=== PATIENT | male | born 1995 | race Caucasian/White ===

== ENCOUNTER 2019-04-24 00:49 | Emergency (ER) | payer OTHER ==
[~2019-04-24] VITALS: Ht 177.8 cm; Wt 80.0 kg
[2019-04-24 07:32] VITALS: BP 118/57
== END 2019-04-24 13:43 | disposition home or self-care (01) ==
LOC: ED 03:08
DX: R45.851 Suicidal ideations (principal); F10.129 Alcohol abuse with intoxication, unspecified; T88.53XA Unintended awareness under general anesthesia during procedure, initial encounter
CPT/HCPCS: 36415; 80048; 80307; 82040; 85025; 99284